=== PATIENT | female | born 1970 | race Caucasian/White ===

== ENCOUNTER 2017-08-22 07:05 | Emergency (ER) | payer BC ==
[~2017-08-22] VITALS: Ht 162.6 cm; Wt 71.8 kg
[~2017-08-22 07:05] MED LIST: CELEXA10 MG PO; CLONAZEPAM1 MG PO; CONCERTA54 MG PO; DEXTROAMP-AMPHE20 MG PO; DOXYCYCLINE HY100 MG PO; HYDROCODON-ACE1 EAC7 PO; IBUPROFEN800 MG PO; LORTAB 5-325 M1 EACH PO; MOTRIN600 MG PO; NAPROSYN500 MG PO; PERCOCET 7.51 TABLET PO; PHENTERMINE HCL30 MG PO; SYNTHROID50 MCG PO
[2017-08-22 07:42] LABS: BASOPHIL COUNT 0.1 K/uL (0-0.1); EOSINOPHIL COUNT 0.1 K/uL (0-0.3); HEMATOCRIT 39.5 % (36.0-46.0); IMMATURE GRANULOCYTE (%) 0.7 % (0.0-0.7); IMMATURE GRANULOCYTE COUNT 0.1 K/uL; INSTRUMENT ABS NEUTROPHIL CT 4.9 K/uL; LYMPHOCYTE COUNT 3.1 K/uL (1.0-2.8); MCH 31.7 PG (29.0-34.0); MCHC 33.7 G/DL (30.0-36.0); MEAN PLAT.VOLUME 8.8 uM^3 (9.5-12.4); MONOCYTE (%) 13.4 % (3-12); MONOCYTE COUNT 1.3 K/uL (0-0.8); NEUTROPHIL (%) 51.5 % (45-76); NEUTROPHIL COUNT 4.9 K/uL (1.8-6.4); PLATELET COUNT 283 K/uL (156-360); RBC DIS.WIDTH-CV 13.1 % (11.8-14.6); WHITE BLOOD COUNT 9.6 K/uL (4.1-10.2)
[2017-08-22 08:13] LABS: ANION GAP 7 MEQ/L (2-14); CHLORIDE 105 MEQ/L (99-109); GFR ESTIMATE (CALCULATED) > 59 mL/min/; GLUCOSE 85 mg/dL (70-99); POTASSIUM 4.4 MEQ/L (3.7-5.4); SAMPLE HEMOLYSIS CHECK 0; SAMPLE ICTERIC CHECK 0; SAMPLE LIPEMIA CHECK 0; SODIUM 140 MEQ/L (136-147); UREA NITROGEN (BUN) 12 mg/dL (9-23)
[2017-08-22 08:14] LABS: C-REACTIVE PROTEIN < 1.0 MG/L (0-10)
[2017-08-22] MEDS ORDERED: MOTRIN800 MG PO (09:22)
[2017-08-22 09:37] VITALS: BP 131/74
[2017-08-23 12:01] LABS: JO-1 ANTIBODY 7 U/mL (0-99); SM (SMITH) ANTIBODY 9 U/mL (0-99); SS-A (SJOGREN'S) ANTIBODY 9 U/mL (0-99); SS-B (SJOGREN'S) ANTIBODY 17 U/mL (0-99)
== END 2017-08-22 09:38 | disposition home or self-care (01) ==
LOC: EME 07:05
PROVIDERS: Emergency Medicine
DX: M25.561 Pain in right knee (principal); M25.562 Pain in left knee; I10 Essential (primary) hypertension; E03.9 Hypothyroidism, unspecified; Z88.2 Allergy status to sulfonamides; Z88.8 Allergy status to other drugs, medicaments and biological substances
CPT/HCPCS: 73564; 80048; 85025; 86038; 86140; 86235; 86430; 99281; 99284; J1885